=== PATIENT | female | born 1975 | race Asian ===

== ENCOUNTER 2017-03-27 16:17 | Inpatient (IN) | payer MEDICAID ==
[~2017-03-27] VITALS: Ht 165.1 cm; Wt 88.0 kg
[~2017-03-27 16:17] MED LIST: ALBU17AE3 IH; FRS325T PO; Ibuprofen PO; PREN-115 PO
[2017-03-27 16:30] VITALS: BP 121/84
[2017-03-27 18:28] LABS: BASOPHILS % (AUTO) 0 % (0-10); EOSINOPHILS # (AUTO) 0.2 10^3/uL (0.0-0.3); EOSINOPHILS % (AUTO) 2 % (0-10); LYMPHOCYTES # (AUTO) 1.9 X 10^3 (1.0-4.0); LYMPHOCYTES % (AUTO) 21 % (12-44); MEAN CORPUSCULAR HEMOGLOBIN 22 PG (25-34); MEAN CORPUSCULAR HGB CONC 31 G/DL (32-36); MEAN CORPUSCULAR VOLUME 71 FL (80-99); MEAN PLATELET VOLUME 9.3 FL (7.4-10.4); MONOCYTES % (AUTO) 11 % (0-12); NEUTROPHILS # (AUTO) 5.9 X 10^3 (1.8-7.8); NEUTROPHILS % (AUTO) 66 % (42-75); PLATELET COUNT 328 10^3/uL (130-400); RED BLOOD COUNT 3.92 10^6/uL (4.35-5.85); RED CELL DISTRIBUTION WIDTH 19.7 % (10.0-14.5); WHITE BLOOD COUNT 9.1 10^3/uL (4.3-11.0)
[2017-03-27 18:45] VITALS: BP 118/70
[2017-03-27 19:20] VITALS: BP 105/67
[2017-03-27] MEDS: D5 LR IV SOLUTION 1,000 ML IV SCH (19:22)
[2017-03-28] VITALS (39 sets, daily range): BP systolic 98–123; BP diastolic 52–84
[2017-03-28] MEDS: D5 LR IV SOLUTION 1,000 ML IV SCH (03:28)
[2017-03-28] MEDS ORDERED: SUFENTA 0.6MCG/ML BUPIVA 0.125 100 ML ONE (04:18)
[2017-03-28] MEDS ORDERED: D5 LR IV SOLUTION 1,000 ML IV SCH (04:35)
[2017-03-28] MEDS ORDERED: OXYTOCIN/NORMAL SALINE 500 ML IV SCH ×2 (04:35→04:37)
--- NOTE | 2017-03-28 04:43 | History & Physical ---
History and Physical Date Seen by Provider: Mar 28, 2017 Time Seen by Provider: 04:40 this patient is a 40-year-old A1 female with a history of very rapid labors. She presented with complaint of contractions and increasing pressure. Was found to be kacy regularly. Her cervix was changing slowly. She was admitted and has been managed expectantly. Her GBS was negative. She denies rupture membranes or bleeding. Allergies are to adhesive tape and aspirin Laboratory Tests 03/27/17 18:10 Medications are vitamins and albuterol multidose inhaler Past medical surgical obstetric family and social histories are per the antepartum record HEENT exam is normal Neck is supple no lymphadenopathy no thyromegaly Abdomen is gravid soft nontender nondistended Extremities show clubbing or cyanosis. There is no Homans sign. Pelvic exam per the nurse shows a cervix now dilated to 3-4 cm. She was vertex at the -1-2 station and intact membranes. Vital Signs Date Time Temp Pulse Resp B/P (MAP) Pulse Ox O2 Delivery O2 Flow Rate FiO2 03/28/17 00:05 98.0 83 18 111/68 Room Air 03/27/17 19:20 97.6 80 18 105/67 Room Air 03/27/17 18:45 98.0 79 20 118/70 Room Air 03/27/17 16:30 88 20 121/84 Room Air I & O 03/28/17 07:00 Intake Total 1300 ml Balance 1300 ml Assessment and plan term now at 39 weeks. In early labor with a history of very rapid labors. Her history is also significant for AMA. management has been expectant. Patient is requesting pain medication will be allowed with epidural. We anticipate vaginal delivery sometime today term at 38-6/7 weeks' gestation at the time of admission in early labor Allergies and Home Medications Allergies Uncoded Allergies: Adhesive Tape (Adverse Reaction, 09/07/12) Skin gets irritated and red. Home Medications Vit #108/Iron/Fa 1 Each Tablet, 1 EACH PO DAILY, (Reported) [Ibuprofen] 600 MG TAB, 600 MG PO Q6H PRN for cramping, #90 Ref 0 Prescribed by: MEGHANN VAZQUEZ on 07/11/14 0928 Clinical Quality Measures DVT/VTE Risk/Contraindication: Risk Factor Score Per Nursin RFS Level Per Nursing on Admit: 3=High AGUILA,SORAYA G MD Mar 28, 2017 4:43 am
[2017-03-28] MEDS ORDERED: BENZOCAINE/MENTHOL (DERMOPLAST) 56 ML CAN TP PRN (04:45)
[2017-03-28] MEDS ORDERED: MEASLES,MUMPS,RUBELLA 1 EA INJ SC ONE (04:45)
[2017-03-28] MEDS ORDERED: oxyCODONE/APAP 10/325MG (PERCOCET 10) TABLET PO PRN (04:45)
[2017-03-28] MEDS ORDERED: TETANUS,DIPTH,PERTUSS P/F (BOOSTRIX) 0.5 ML VIAL IM ONE (04:45)
[2017-03-28] MEDS ORDERED: fentaNYL INJECTION 100 MCG/2 ML AMP ONE (05:07)
[2017-03-28] MEDS ORDERED: BUPIVACAINE 0.25% 30 ML (SENSORCAINE) VIAL ONE (05:08)
[2017-03-28] MEDS ORDERED: LIDOCAINE PF 2% 10 ML (XYLOCAINE) AMP ONE (05:08)
[2017-03-28] MEDS ORDERED: LACTATED RINGERS 1,000 ML IV SCH (05:16)
[2017-03-28] MEDS ORDERED: EPIDURAL (SUFENTA 0.6MCG/ML BUPIVA 0.125%) 100 ML BAG EPI PRN (05:30)
[2017-03-28] MEDS ORDERED: diphenhydrAMINE 50 MG/ML INJ (BENADRYL) IV PRN (05:30)
[2017-03-28] MEDS ORDERED: NALOXONE 0.4 MG/ML 1 ML (NARCAN) VIAL IV PRN (05:30)
[2017-03-28] MEDS ORDERED: ONDANSETRON 4 MG/2 ML (SDV) Z0FRAN IV PRN (05:30)
[2017-03-28] MEDS ORDERED: LIDOCAINE/EPI 1%-1:200,000 (XYLOCAINE) 30 ML VIAL ONE (08:49)
[2017-03-28] MEDS: KETOROLAC 30 MG/ML VIAL IV SCH ×3 (10:31→21:57)
[2017-03-28] MEDS: DOCUSATE SODIUM 100 MG (COLACE) CAP PO SCH ×2 (11:49→21:57)
--- NOTE | 2017-03-28 12:32 | OPERATIVE REPORT ---
DATE OF SERVICE: 03/28/2017 DELIVERY NOTE The patient delivered by term spontaneous vaginal delivery at 39 weeks gestation over an intact perineum under epidural analgesia with 1 push. The infant was bulb suctioned on delivery of the head and again on completion of delivery. The infant is male. time was 0905, Apgars were 8 and 9, weight was 6 pounds 12 ounces. Cord arterial blood pH is pending secondary to the precipitous nature of her progress and some decels noted on the strip. The rectum, perineum, vagina and cervix were examined and found intact. The placenta delivered spontaneously Santana. It was normal with a 3-vessel cord. Sponge and needle counts were correct on completion of the delivery. Estimated blood loss was around 100 mL. The patient tolerated the delivery well and remained in the LDR for recovery. The baby remained with the mom. Job ID: [id number] DocumentID: [id number] Dictated Date: 03/28/2017 09:16:13 Acid Loader Date: 03/28/2017 12:31:40 Dictated By: SORAYA SHEEHAN MD
[2017-03-29] MEDS ORDERED: KETOROLAC 30 MG/ML VIAL ONE (03:13)
[2017-03-29 03:20] VITALS: BP 100/67
[2017-03-29] MEDS: KETOROLAC 30 MG/ML VIAL IV SCH (03:20)
[2017-03-29] MEDS: IBUPROFEN 800 MG (MOTRIN) TAB PO SCH ×4 (04:59→21:14)
--- NOTE | 2017-03-29 07:19 | Progress Note-Standard ---
Standard Progress Note Progress Notes/Assess & Plan Date Seen by Provider: Mar 29, 2017 Time Seen by Provider: 07:18 Progress/Assessment & Plan this patient is without complaint. She is ambulating, voiding, tolerating by mouth, denies chest pain, denies shortness of breath, denies headache, denies nausea vomiting, patient has good pain control. Vital Signs Date Time Temp Pulse Resp B/P (MAP) Pulse Ox O2 Delivery O2 Flow Rate FiO2 03/29/17 03:20 96.8 70 18 100/67 99 Room Air 03/28/17 23:45 96.3 85 18 98/58 100 Room Air 03/28/17 19:50 96.9 89 18 100/54 98 Room Air 03/28/17 14:04 98.0 71 18 98/59 Room Air 03/28/17 10:15 78 18 116/53 Room Air 03/28/17 10:00 79 18 104/58 Room Air 03/28/17 09:45 98.4 75 18 104/55 Room Air 03/28/17 09:30 98.3 86 18 110/55 Room Air 03/28/17 09:15 97.4 96 18 106/58 Room Air 03/28/17 09:00 88 18 115/63 Room Air 03/28/17 08:45 86 18 118/84 Room Air 03/28/17 08:30 93 18 106/52 100 Room Air 03/28/17 08:15 88 18 108/62 100 Room Air 03/28/17 08:00 86 18 114/57 100 Room Air 03/28/17 07:45 89 18 108/59 100 Room Air 03/28/17 07:30 98.7 92 18 109/65 100 Room Air I & O 03/29/17 07:00 Intake Total 500 ml Balance 500 ml vital signs are stable. Patient is afebrile. Fundus is firm below the umbilicus nontender. Extremities show no clubbing or cyanosis. There is no Homans sign. There is some pretibial pitting edema that is normal. Assessment and plan day number 1 status post term spontaneous vaginal delivery doing well. Plan is for routine convalescence care today and discharge home tomorrow Final Diagnosis term spontaneous vaginal delivery SORAYA SHEEHAN MD Mar 29, 2017 7:19 am
[2017-03-29] MEDS ORDERED: DOCU100C37 PO (07:20)
[2017-03-29] MEDS ORDERED: OXYC-465 PO (07:20)
[2017-03-29] MEDS ORDERED: IBUP-1780 PO (07:20)
--- NOTE | 2017-03-29 07:22 | Discharge Instructions ---
Discharge Instructions Discharge Medications New, Converted or Re-Newed RX: RX on Chart Patient Instructions Patient Instructions: as directed Return to The Hospital For: as directed Activity & Diet Discharge Diet: No Restrictions Activity as Tolerated: No Orders-Post D/C & Referrals Follow Up Appt: Call to make follow up appt. for patient in 4 weeks. Activity Per routine post vaginal delivery instructions. Please call in RX to patient pharmacy. Diet as tolerated Patient may shower or tub bathe as desired. SORAYA SHEEHAN MD Mar 29, 2017 7:22 am
[2017-03-29 08:42] VITALS: BP 121/78
[2017-03-29] MEDS: DOCUSATE SODIUM 100 MG (COLACE) CAP PO SCH ×2 (08:43→21:14)
[2017-03-29 15:05] VITALS: BP 99/63
[2017-03-29 21:00] VITALS: BP 114/63
[2017-03-30 02:20] VITALS: BP 98/61
[2017-03-30] MEDS: IBUPROFEN 800 MG (MOTRIN) TAB PO SCH ×2 (03:37→11:11)
--- NOTE | 2017-03-30 07:31 | Progress Note-Standard ---
Standard Progress Note Progress Notes/Assess & Plan Date Seen by Provider: Mar 30, 2017 Time Seen by Provider: 07:30 Progress/Assessment & Plan this patient is without complaint. She is ambulating, voiding, tolerating by mouth, denies chest pain, denies shortness of breath, denies headache, denies nausea vomiting, patient has good pain control. Vital Signs Date Time Temp Pulse Resp B/P (MAP) Pulse Ox O2 Delivery O2 Flow Rate FiO2 03/29/17 03:20 96.8 70 18 100/67 99 Room Air 03/28/17 23:45 96.3 85 18 98/58 100 Room Air 03/28/17 19:50 96.9 89 18 100/54 98 Room Air 03/28/17 14:04 98.0 71 18 98/59 Room Air 03/28/17 10:15 78 18 116/53 Room Air 03/28/17 10:00 79 18 104/58 Room Air 03/28/17 09:45 98.4 75 18 104/55 Room Air 03/28/17 09:30 98.3 86 18 110/55 Room Air 03/28/17 09:15 97.4 96 18 106/58 Room Air 03/28/17 09:00 88 18 115/63 Room Air 03/28/17 08:45 86 18 118/84 Room Air 03/28/17 08:30 93 18 106/52 100 Room Air 03/28/17 08:15 88 18 108/62 100 Room Air 03/28/17 08:00 86 18 114/57 100 Room Air 03/28/17 07:45 89 18 108/59 100 Room Air 03/28/17 07:30 98.7 92 18 109/65 100 Room Air I & O 03/29/17 07:00 Intake Total 500 ml Balance 500 ml vital signs are stable. Patient is afebrile. Fundus is firm below the umbilicus nontender. Extremities show no clubbing or cyanosis. There is no Homans sign. There is some pretibial pitting edema that is normal. Assessment and plan day number 1 status post term spontaneous vaginal delivery doing well. Plan is for routine convalescence care today and discharge home tomorrow March 30, 2017 Patient is without complaint. She is ambulating, voiding, tolerating by mouth, has good pain control, patient is requesting discharge home. Vital Signs Date Time Temp Pulse Resp B/P (MAP) Pulse Ox O2 Delivery O2 Flow Rate FiO2 03/30/17 02:20 98.0 78 18 98/61 97 Room Air 03/29/17 21:00 96.7 96 18 114/63 96 Room Air 03/29/17 15:05 97.2 18 99/63 98 Room Air 03/29/17 08:42 96.9 95 18 121/78 98 Room Air vital signs are stable. Patient is afebrile. Fundus is firm below the umbilicus nontender. Extremities show no clubbing cyanosis. There is no Homans sign. Assessment and plan day number 2 doing well. Plan is for discharge home. Final Diagnosis term spontaneous vaginal delivery SORAYA SHEEHAN MD Mar 30, 2017 7:31 am
[2017-03-30] MEDS ORDERED: TETANUS,DIPTH,PERTUSS P/F (BOOSTRIX) 0.5 ML VIAL IM ONE (07:32)
[2017-03-30 07:45] VITALS: BP 111/64
[2017-03-30] MEDS: DOCUSATE SODIUM 100 MG (COLACE) CAP PO SCH (07:45)
[2017-03-30 14:30] VITALS: BP 111/64
--- OUTSIDE RECORDS SUMMARY | 2017-03-30 17:33 | XMS REPORT ---
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 [employer] Name Role Phone MEENA BREWER CP Unavailable Allergies, Adverse Reactions, Alerts Substance Reaction Event Type Aspirin stomachache Drug Allergy adhesive Info Not Available Non Drug Allergy Problems Problem Type Condition Code Onset Dates Condition Status Problem Asthma, unspecified, unspecified status 493.90 Active Assessment Viral conjunctivitis 077.99 Active Problem Viral conjunctivitis 077.99 Active Medications Medication Code System Code Instructions Start Date End Date Status Dosage ProAir HFA [facility] [id number] 90 mcg/actuation February 27, 2014 inhale 2 puffs by Inhalation route every 4 hours as needed PRN shortness of breath/ cough Procedures Procedure Coding System Code Date Office Visit, Est Pt., Level 3 CPT-4 74364 Jun 07, 2015 Vital Signs Date/Time: Jun 07, 2015 Temperature 98.4 F Weight 184.5 lbs Height 65 in BMI 30.70 Index Blood Pressure Diastolic 78 mmHg Blood Pressure Systolic 118 mmHg Cardiac Monitoring Heart Rate 84 bpm Results No Known Results Summary Purpose [employer] Submission
--- OUTSIDE RECORDS SUMMARY | 2017-03-30 17:34 | XMS REPORT | Continuity of Care Document ---
Author Author [facility] Organization [facility] Address Unknown Phone Unavailable Allergies Active Description Code Type Severity Reaction Onset Reported/Identified Relationship to Patient Clinical Status Yes aspirin Drug Allergy 04/06/2012 Yes aspirin Drug Allergy N/A N/A 04/06/2012 Yes Adhesive Tape Adhesive Tape Unknown N/A 09/07/2012 Medications Problems Date Dx Coded Attending Type Code Diagnosis Diagnosed By 02/02/2012 V72.42 EXAMINATION OR TEST POSITIVE RESULT 02/02/2012 V72.42 EXAMINATION OR TEST POSITIVE RESULT 02/02/2012 VAZQUEZ MEGHANN GALLAGHER K V72.42 EXAMINATION OR TEST POSITIVE RESULT 02/02/2012 MULUGETA REYES MD V72.42 EXAMINATION OR TEST POSITIVE RESULT 02/02/2012 VAZQUEZ DO MEGHANN K V72.42 EXAMINATION OR TEST POSITIVE RESULT 02/02/2012 VAZQUEZ DO, MEGHANN K V72.42 EXAMINATION OR TEST POSITIVE RESULT 02/02/2012 VAZQUEZ DO MEGHANN K V72.42 EXAMINATION OR TEST POSITIVE RESULT 02/02/2012 VAZQUEZ DO MEGHANN K V72.42 EXAMINATION OR TEST POSITIVE RESULT 02/02/2012 VAZQUEZ DO, MEGHANN K V72.42 EXAMINATION OR TEST POSITIVE RESULT 02/02/2012 VAZQUEZ DO MEGHANN K V72.42 EXAMINATION OR TEST POSITIVE RESULT 02/02/2012 VAZQUEZ DO MEGHANN K V72.42 EXAMINATION OR TEST POSITIVE RESULT 02/02/2012 VAZQUEZ DO, MEGHANN K V72.42 EXAMINATION OR TEST POSITIVE RESULT 02/02/2012 DANN SINGH APRN V72.42 EXAMINATION OR TEST POSITIVE RESULT 02/02/2012 VAZQUEZ DO MEGHANN K V72.42 EXAMINATION OR TEST POSITIVE RESULT 02/02/2012 DANN SINGH APRN V72.42 EXAMINATION OR TEST POSITIVE RESULT 02/02/2012 VAZQUEZ DO MEGHANN K V72.42 EXAMINATION OR TEST POSITIVE RESULT 03/08/2012 V22.1 , NORMAL OTHER 03/08/2012 V22.1 , NORMAL OTHER 03/08/2012 VAZQUEZ DO, MEGHANN K V22.1 , NORMAL OTHER 03/08/2012 AMY STOCKTON, MULUGETA V22.1 , NORMAL OTHER 03/08/2012 VAZQUEZ DO, MEGHANN K V22.1 , NORMAL OTHER 03/08/2012 VAZQUEZ DO, MEGHANN K V22.1 , NORMAL OTHER 03/08/2012 VAZQUEZ DO, MEGHANN K V22.1 , NORMAL OTHER 03/08/2012 VAZQUEZ DO, MEGHANN K V22.1 , NORMAL OTHER 03/08/2012 VAZQUEZ DO, MEGHANN K V22.1 , NORMAL OTHER 03/08/2012 VAZQUEZ DO, MEGHANN K V22.1 , NORMAL OTHER 03/08/2012 VAZQUEZ DO, MEGHANN K V22.1 , NORMAL OTHER 03/08/2012 VAZQUEZ DO, MEGHANN K V22.1 , NORMAL OTHER 03/08/2012 DAR SINGH APRNE E V22.1 , NORMAL OTHER 03/08/2012 VAZQUEZ DO, MEGHANN K V22.1 , NORMAL OTHER 03/08/2012 DAR SINGH APRNE E V22.1 , NORMAL OTHER 03/08/2012 VAZQUEZ DO, MEGHANN K V22.1 , NORMAL OTHER 04/06/2012 V74.5 STD SCREEN 04/06/2012 V76.2 CERVICAL CANCER SCREENING (PAP SMEAR) 04/06/2012 V74.5 STD SCREEN 04/06/2012 V76.2 CERVICAL CANCER SCREENING (PAP SMEAR) 04/06/2012 VAZQUEZ DO, MEGHANN K V74.5 STD SCREEN 04/06/2012 VAZQUEZ DO, MEGHANN K V76.2 CERVICAL CANCER SCREENING (PAP SMEAR) 04/06/2012 MULUGETA REYES MD V74.5 STD SCREEN 04/06/2012 MULUGETA REYES MD V76.2 CERVICAL CANCER SCREENING (PAP SMEAR) 04/06/2012 VAZQUEZ DO, MEGHANN K V74.5 STD SCREEN 04/06/2012 VAZQUEZ DO, MEGHANN K V76.2 CERVICAL CANCER SCREENING (PAP SMEAR) 04/06/2012 VAZQUEZ DO, MEGHANN K V74.5 STD SCREEN 04/06/2012 VAZQUEZ DO, MEGHANN K V76.2 CERVICAL CANCER SCREENING (PAP SMEAR) 04/06/2012 VAZQUEZ DO, MEGHANN K V74.5 STD SCREEN 04/06/2012 VAZQUEZ DO, MEGHANN K V76.2 CERVICAL CANCER SCREENING (PAP SMEAR) 04/06/2012 VAZQUEZ DO, MEGHANN K V74.5 STD SCREEN 04/06/2012 VAZQUEZ DO, MEGHANN K V76.2 CERVICAL CANCER SCREENING (PAP SMEAR) 04/06/2012 VAZQUEZ DO, MEGHANN K V74.5 STD SCREEN 04/06/2012 VAZQUEZ DO, MEGHANN K V76.2 CERVICAL CANCER SCREENING (PAP SMEAR) 04/06/2012 VAZQUEZ DO, MEGHANN K V74.5 STD SCREEN 04/06/2012 VAZQUEZ DO, MEGHANN K V76.2 CERVICAL CANCER SCREENING (PAP SMEAR) 04/06/2012 VAZQUEZ DO, MEGHANN K V74.5 STD SCREEN 04/06/2012 VAZQUEZ DO, MEGHANN K V76.2 CERVICAL CANCER SCREENING (PAP SMEAR) 04/06/2012 VAZQUEZ DO, MEGHANN K V74.5 STD SCREEN 04/06/2012 VAZQUEZ DO MEGHANN K V76.2 CERVICAL CANCER SCREENING (PAP SMEAR) 04/06/2012 DANN SINGH APRN V74.5 STD SCREEN 04/06/2012 DANN SINGH APRN E V76.2 CERVICAL CANCER SCREENING (PAP SMEAR) 04/06/2012 TAYLOR GALLAGHER MEGHANN K V74.5 STD SCREEN 04/06/2012 TAYLOR GALLAGHER MEGHANN K V76.2 CERVICAL CANCER SCREENING (PAP SMEAR) 04/06/2012 DANN SINGH APRN E V74.5 STD SCREEN 04/06/2012 DANN SINGH APRN E V76.2 CERVICAL CANCER SCREENING (PAP SMEAR) 04/06/2012 TAYLOR GALLAGHER MEGHANN K V74.5 STD SCREEN 04/06/2012 VAZQUEZ DO MEGHANN K V76.2 CERVICAL CANCER SCREENING (PAP SMEAR) 07/04/2012 641.90 COMPL OF - BLEEDING 07/04/2012 V04.81 FLU SHOT 07/04/2012 641.90 COMPL OF - BLEEDING 07/04/2012 V04.81 FLU SHOT 07/04/2012 VAZQUEZ DIANE GALLAGHERA K 641.90 COMPL OF - BLEEDING 07/04/2012 VAZQUEZ DIANE GALLAGHERA K V04.81 FLU SHOT 07/04/2012 MULUGETA REYES MD 641.90 COMPL OF - BLEEDING 07/04/2012 MULUGETA REYES MD V04.81 FLU SHOT 07/04/2012 VAZQUEZ DO, MEGHANN K 641.90 COMPL OF - BLEEDING 07/04/2012 VAZQUEZ DO, MEGHANN K V04.81 FLU SHOT 07/04/2012 VAZQUEZ DO, MEGHANN K 641.90 COMPL OF - BLEEDING 07/04/2012 VAZQUEZ DO, MEGHANN K V04.81 FLU SHOT 07/04/2012 VAZQUEZ DO, MEGHANN K 641.90 COMPL OF - BLEEDING 07/04/2012 VAZQUEZ DO, MEGHANN K V04.81 FLU SHOT 07/04/2012 VAZQUEZ DO, MEGHANN K 641.90 COMPL OF - BLEEDING 07/04/2012 VAZQUEZ DO, MEGHANN K V04.81 FLU SHOT 07/04/2012 VAZQUEZ DO, MEGHANN K 641.90 COMPL OF - BLEEDING 07/04/2012 VAZQUEZ DO, MEGHANN K V04.81 FLU SHOT 07/04/2012 VAZQUEZ DO, MEGHANN K 641.90 COMPL OF - BLEEDING 07/04/2012 VAZQUEZ DO, MEGHANN K V04.81 FLU SHOT 07/04/2012 VAZQUEZ DO, MEGHANN K 641.90 COMPL OF - BLEEDING 07/04/2012 VAZQUEZ DO, MEGHANN K V04.81 FLU SHOT 07/04/2012 VAZQUEZ DO, MEGHANN K 641.90 COMPL OF - BLEEDING 07/04/2012 VAZQUEZ DO, MEGHANN K V04.81 FLU SHOT 07/04/2012 DANN SNIGH APRN 641.90 COMPL OF - BLEEDING 07/04/2012 DANN SINGH APRN V04.81 FLU SHOT 07/04/2012 VAZQUEZ DO, MEGHANN K 641.90 COMPL OF - BLEEDING 07/04/2012 VAZQUEZ DO, MEGHANN K V04.81 FLU SHOT 07/04/2012 DANN SINGH APRN 641.90 COMPL OF - BLEEDING 07/04/2012 DANN SINGH APRN V04.81 FLU SHOT 07/04/2012 VAZQUEZ DO MEGHANN K 641.90 COMPL OF - BLEEDING 07/04/2012 VAZQUEZ DO MEGHANN K V04.81 FLU SHOT 08/22/2012 Ot 644.03 THRT PAOLA LABOR-ANTEPART 09/07/2012 Ot 644.03 THRT PAOLA LABOR-ANTEPART 09/09/2012 Ot 661.31 PRECIPITATE LABOR-DELIV 09/09/2012 Ot 664.01 DEL W 1 DEG LACERAT-DEL 09/09/2012 Ot V06.1 [id number], COMBINED [ 09/09/2012 Ot V27.0 DELIVER-SINGLE LIVEBORN 01/22/2013 682.9 CELLULITIS AND ABSCESS OF UNSPECIFIED SITES 01/22/2013 682.9 CELLULITIS AND ABSCESS OF UNSPECIFIED SITES 01/22/2013 MEGHANN VAZQUEZ DO 682.9 CELLULITIS AND ABSCESS OF UNSPECIFIED SITES 01/22/2013 MEGHANN VAZQUEZ DO K 682.9 CELLULITIS AND ABSCESS OF UNSPECIFIED SITES 01/22/2013 MEGHANN VAZQUEZ DO K 682.9 CELLULITIS AND ABSCESS OF UNSPECIFIED SITES 01/22/2013 MEGHANN VAZQUEZ DO 682.9 CELLULITIS AND ABSCESS OF UNSPECIFIED SITES 01/22/2013 MEGHANN VAZQUEZ DO 682.9 CELLULITIS AND ABSCESS OF UNSPECIFIED SITES 01/22/2013 DIANE VAZQUEZ DOA K 682.9 CELLULITIS AND ABSCESS OF UNSPECIFIED SITES 01/22/2013 DIANE VAZQUEZ DOA K 682.9 CELLULITIS AND ABSCESS OF UNSPECIFIED SITES 01/22/2013 DIANE VAZQUEZ DOA K 682.9 CELLULITIS AND ABSCESS OF UNSPECIFIED SITES 01/22/2013 DIANE VAZQUEZ DOA K 682.9 CELLULITIS AND ABSCESS OF UNSPECIFIED SITES 01/22/2013 FRANCISCO BRAND MANAGERDARE E 682.9 CELLULITIS AND ABSCESS OF UNSPECIFIED SITES 01/22/2013 MEGHANN VAZQUEZ DO K 682.9 CELLULITIS AND ABSCESS OF UNSPECIFIED SITES 01/22/2013 FRANCISCO BRAND MANAGER, DANN E 682.9 CELLULITIS AND ABSCESS OF UNSPECIFIED SITES 01/22/2013 MEGHANN VAZQUEZ DO 682.9 CELLULITIS AND ABSCESS OF UNSPECIFIED SITES 01/15/2014 MEGHANN VAZQUEZ DO V23.82 SUPERVISION OF HIGH-RISK WITH ELDERLY MULTIGRAVIDA 01/15/2014 MEGHANN VAZQUEZ DO V23.82 SUPERVISION OF HIGH-RISK WITH ELDERLY MULTIGRAVIDA 01/15/2014 MEGHANN VAZQUEZ DO V23.82 SUPERVISION OF HIGH-RISK WITH ELDERLY MULTIGRAVIDA 01/15/2014 VAZQUEZ DO MEGHANN K V23.82 SUPERVISION OF HIGH-RISK WITH ELDERLY MULTIGRAVIDA 01/15/2014 VAZQUEZ DO MEGHANN K V23.82 SUPERVISION OF HIGH-RISK WITH ELDERLY MULTIGRAVIDA 01/15/2014 VAZQUEZ DO MEGHANN K V23.82 SUPERVISION OF HIGH-RISK WITH ELDERLY MULTIGRAVIDA 01/15/2014 VAZQUEZ DO MEGHANN K V23.82 SUPERVISION OF HIGH-RISK WITH ELDERLY MULTIGRAVIDA 01/15/2014 VAZQUEZ DO MEGHANN K V23.82 SUPERVISION OF HIGH-RISK WITH ELDERLY MULTIGRAVIDA 01/15/2014 VAZQUEZ DO MEGHANN K V23.82 SUPERVISION OF HIGH-RISK WITH ELDERLY MULTIGRAVIDA 01/15/2014 HELLDANN PRASAD APRN V23.82 SUPERVISION OF HIGH-RISK WITH ELDERLY MULTIGRAVIDA 01/15/2014 VAZQUEZ DO MEGHANN K V23.82 SUPERVISION OF HIGH-RISK WITH ELDERLY MULTIGRAVIDA 01/15/2014 HELLDANN PRASAD APRN V23.82 SUPERVISION OF HIGH-RISK WITH ELDERLY MULTIGRAVIDA 01/15/2014 VAZQUEZ DO MEGHANN K V23.82 SUPERVISION OF HIGH-RISK WITH ELDERLY MULTIGRAVIDA 02/27/2014 TAYLOR GALLAGHER MEGHANN K 493.90 ASTHMA UNSPECIFIED 02/27/2014 VAZQUEZ DO MEGHANN K 493.90 ASTHMA UNSPECIFIED 02/27/2014 VAZQUEZ DO, MEGHANN K 493.90 ASTHMA UNSPECIFIED 02/27/2014 VAZQUEZ DO MEGHANN K 493.90 ASTHMA UNSPECIFIED 02/27/2014 VAZQUEZ DO MEGHANN K 493.90 ASTHMA UNSPECIFIED 02/27/2014 VAZQUEZ DO, MEGHANN K 493.90 ASTHMA UNSPECIFIED 02/27/2014 VAZQUEZ DO, MEGHANN K 493.90 ASTHMA UNSPECIFIED 02/27/2014 HELLWIG DANN ZEPEDA 493.90 ASTHMA UNSPECIFIED 02/27/2014 VAZQUEZ DO MEGHANN K 493.90 ASTHMA UNSPECIFIED 02/27/2014 HELLWIG DANN ZEPEDA 493.90 ASTHMA UNSPECIFIED 02/27/2014 VAZQUEZ DO MEGHANN K 493.90 ASTHMA UNSPECIFIED 06/12/2014 TAYLOR GALLAGHER MEGHANN K V06.1 TDAP DX 06/12/2014 DANN SINGH APRN E V06.1 TDAP DX 06/12/2014 VAZQUEZ MEGHANN GALLAGHER K V06.1 TDAP DX 06/12/2014 FABRICIOLDAR PRASAD APRNE E V06.1 TDAP DX 06/12/2014 VAZQUEZ DIANE GALLAGHERA K V06.1 TDAP DX 06/14/2014 DIANE VAZQEUZ DOA Miguel Ot 648.93 OTH CURR COND-ANTEPARTUM 06/14/2014 DIANE VAZQUEZ DOA Miguel Ot 789.00 ABDOMINAL PAIN, UNSPECIFIED SITE 06/19/2014 DIANE VAZQUEZ DOA K 789.00 ABDOMINAL PAIN UNSPECIFIED SITE 06/19/2014 HELCOBY BRAND MANAGERDAR DiazE E 789.00 ABDOMINAL PAIN UNSPECIFIED SITE 06/19/2014 DIANE VAZQUEZ DOA K 789.00 ABDOMINAL PAIN UNSPECIFIED SITE 06/19/2014 DAR SINGH APRNE E 789.00 ABDOMINAL PAIN UNSPECIFIED SITE 06/19/2014 DIANE VAZQUEZ DOA K 789.00 ABDOMINAL PAIN UNSPECIFIED SITE 07/11/2014 DIANE VAZQUEZ DOA Miguel Ot 285.9 ANEMIA NOS 07/11/2014 DIANE VAZQUEZ DOA Miguel Ot 648.21 ANEMIA-DELIVERED 07/11/2014 DIANE VAZQUEZ DOA Miguel Ot V27.0 DELIVER-SINGLE LIVEBORN 08/19/2014 MEGHANN VAZQUEZ DO V25.9 CONTRACEPTION MANAGEMENT 03/27/2017 Ot V28.89 OTHER SPECIFIED SCREENING 03/27/2017 Ot V28.89 OTHER SPECIFIED SCREENING 03/27/2017 NICOLE TEJEDA APRN Ot V28.81 ENCOUNTER FOR ANATOMIC SURVEY 03/27/2017 MEGHANN VAZQUEZ DO Ot 493.90 ASTHMA, UNSPECIFIED 03/27/2017 DIANE VAZQUEZ DOA Miguel Ot 646.83 PREG COMPL NEC-ANTEPART 03/27/2017 MEGHANN VAZQUEZ DO Ot 648.93 OTH CURR COND-ANTEPARTUM 03/27/2017 MEGHANN VAZQUEZ DO Ot 682.9 CELLULITIS NOS 03/27/2017 DIANE VAZQUEZ DOA Miguel Ot V23.82 SUPRV HIGH-RISK PREG-ELDERLY MULTIGRAVID 03/27/2017 MEGHANN VAZQUEZ DO Ot V28.81 ENCOUNTER FOR ANATOMIC SURVEY 03/27/2017 MEGHANN VAZQUEZ DO Ot V72.42 EXAMINATION OR TEST, POSITIVE 03/27/2017 MEGHANN VAZQUEZ DO Ot V74.5 SCREEN FOR VENERAL DIS 03/27/2017 MEGHANN VAZQUEZ DO Ot V76.2 SCREEN MAL NEOP-CERVIX Procedures Code [place] [address] UA OB DIP 2011 81784 UA OB DIP 2011 15502 CULTURE GROUP B STREP VAG 08/29/2012 75.69 REPAIR OB LACERATION NEC 09/07/2012 06237 ROUTINE VENIPUNCTURE 01/15/2014 80311 UA OB DIP 2013 32783 TEST, URINE (IN-HOUSE) 01/15/2014 72902 US OB - EARLY <14 WEEKS 01/15/2014 34672 SYPHILLIS-STATE LAB 01/15/2014 69274 ANTIBODY SCREEN (order) 01/15/2014 12798 HEP B SURFACE ANTIGEN (STATE) 01/15/2014 03297 CBC 01/15/2014 14915 TSH 01/15/2014 82221 HIV ANTIBODIES (RML) 01/16/2014 [id number] ANTIBODY SCREEN (RESULT ONLY) 01/16/2014 38242 BLOOD TYPE/Rh FACTOR 01/16/2014 32982 RUBELLA ANTIBODY, IGG 01/16/2014 26253 CULTURE URINE 06/2014 15845 UA OB DIP 2013 45385 GC/CHLAM PROBE (STATE) 02/12/2014 00467 CULTURE UROGENITAL 02/14/2014 40050 UA OB DIP 2013 84658 US OB - COMPLETE >14 WEEKS 02/27/2014 05449 UA OB DIP 2013 39348 GLUCOSE FINGER STICK 05/09/2014 14527 UA OB DIP 2013 93090 GLUCOSE FINGER STICK 05/29/2014 75844 UA OB DIP 2013 80014 UA OB DIP 2013 92236 CULTURE GROUP B STREP VAG 07/03/2014 Obstetric Robin, Dennis 07/03/2014 73.59 MANUAL ASSIST DELIV NEC 07/09/2014 27632 TEST, URINE (IN-HOUSE) 08/19/2014 40077 THERAPUTIC INJ SQ/IM 08/19/2014 J1050 DEPO PROVERA 07/2014 Results Test Result Range Complete blood count (CBC) with automated white blood cell (WBC) differential - 03/27/17 18:10 Blood leukocytes automated count (number/volume) 9.1 10*3/ uL 4.3-11.0 Blood erythrocytes automated count (number/volume) 3.92 10*6 /uL 4.35-5.85 Venous blood hemoglobin measurement (mass/volume) 8.5 g/dL 11.5-16.0 Blood hematocrit (volume fraction) 28 % 35-52 Automated erythrocyte mean corpuscular volume 71 [foz_us] 80-99 Automated erythrocyte mean corpuscular hemoglobin (mass per erythrocyte) 22 pg 25-34 Automated erythrocyte mean corpuscular hemoglobin concentration measurement ( mass/volume) 31 g/dL 32-36 Automated erythrocyte distribution width ratio 19.7 % 10.0-14.5 Automated blood platelet count (count/volume) 328 10*3/uL 130-400 Automated blood platelet mean volume measurement 9.3 [foz_us ] 7.4-10.4 Automated blood neutrophils/100 leukocytes 66 % 42-75 Automated blood lymphocytes/100 leukocytes 21 % 12-44 Blood monocytes/100 leukocytes 11 % 0-12 Automated blood eosinophils/100 leukocytes 2 % 0-10 Automated blood basophils/100 leukocytes 0 % 0-10 Blood neutrophils automated count (number/volume) 5.9 10*3 1.8-7.8 Blood lymphocytes automated count (number/volume) 1.9 10*3 1.0-4.0 Blood monocytes automated count (number/volume) 1.0 10*3 0.0-1.0 Automated eosinophil count 0.2 10*3/uL 0.0-0.3 Automated blood basophil count (count/volume) 0.0 10*3/uL 0.0-0.1 Blood type T Indirect antibody screen panel - 03/27/17 18:10 ABO+Rh group OP NRG Transfusion band number [id number] NRG Blood group antibody screen NEGATIVE NRG Encounters ACCT No. Visit Date/Time Discharge Status Pt. Type Provider Facility Loc./Unit Complaint [id number] 07/08/2014 22:43:00 2013 11:30:00 DIS Inpatient MEGHANN VAZQUEZ DO [facility] LDRP CONTRACTIONS [id number] 06/14/2014 14:55:00 2013 19:15:00 DIS Outpatient MEGHANN VAZQUEZ DO [facility] WSo NON-TRAUMA ABD PAIN [id number] 03/06/2014 15:04:00 2013 23:59:59 CLS Outpatient MEGHANN VAZQUEZ DO [facility] RAD SURVEY [id number] 01/23/2014 14:33:00 2013 23:59:59 CLS Outpatient NICOLE TEJEDA APRN [facility] RAD DATING [id number] 06/04/2013 10:44:00 2012 23:59:59 CLS Outpatient [id number] 03/27/2017 17:45:00 ACT Inpatient RUBEN SHEEHAN MD [facility]DR[facility] LABOR [id number] 09/07/2012 17:44:00 Document Registration [id number] 09/07/2012 09:11:00 Document Registration [id number] 08/22/2012 07:02:00 Document Registration [id number] 05/09/2012 10:13:00 Document Registration [id number] 03/10/2012 10:32:00 Document Registration
== END 2017-03-30 14:30 | disposition home or self-care (01) | DRG 775 ==
LOC: WSo 16:17 → LDRP 16:18 → WSo 17:45 → LDRP 17:45
PROVIDERS: ADMIT Obstetrics & Gynecology; ATTEND Obstetrics & Gynecology
PROC: 10E0XZZ Delivery of Products of Conception, External Approach (ICD-10-PCS; principal; 2017-03-28)
DX: O26.893 Other specified pregnancy related conditions, third trimester (principal); O09.523 Supervision of elderly multigravida, third trimester; O62.3 Precipitate labor; O76 Abnormality in fetal heart rate and rhythm complicating labor and delivery; Z3A.39 39 weeks gestation of pregnancy; Z37.0 Single live birth; Z23 Encounter for immunization
CPT/HCPCS: 36415; 85025; 86850; 86900; 86901; 90715; 99212

== ENCOUNTER 2020-12-08 07:05 | Inpatient (IN) | payer MEDICAID ==
[2020-12-08] VITALS (38 sets, daily range): BP systolic 87–143; BP diastolic 51–98
[~2020-12-08] VITALS: Ht 162.6 cm; Wt 84.2 kg
[~2020-12-08 07:05] MED LIST changes: +DOCU100C37 PO; +IBUP-1780 PO; +OXYC-556 PO
--- NOTE | 2020-12-08 07:23 | History & Physical ---
History and Physical Date Seen by Provider: Dec 08, 2020 Time Seen by Provider: 07:20 This patient is a 45-year-old 6 para 5 female who presents for induction of labor. Her history is significant for an abnormal genetic screening test showing increased risk for SMA. Patient is also noted to have polyhydramnios with an JABIER of 240 on November 18, 2020. Patient denies rupture membranes or bleeding. Her GBS culture was negative that was performed after 35 weeks gestation. Allergies are to adhesive tape Medications are vitamins Medical social and surgical history is all per her antepartum record HEENT exam is normal Neck is supple with no lymphadenopathy no thyromegaly Abdomen is gravid Extremities show no clubbing or cyanosis. There is no Homans' sign. Pelvic exam is pending Lab work is pending Assessment and plan 38-3/7 weeks gestation and an elderly multigravida with abnormal genetic screening and with polyhydramnios. Patient is admitted for labor induction. We anticipate a vaginal delivery Polyhydmnios/elderly multigravid/abnormal genetic screen Allergies and Home Medications Allergies Uncoded Allergies: Adhesive Tape (Adverse Reaction, 09/07/12) Skin gets irritated and red. Home Medications Docusate Sodium 100 Mg Capsule, 100 MG PO BID Prescribed by: SORAYA HERRERA on 03/29/17719 Ibuprofen 800 Mg Tablet, 800 MG PO Q6H Prescribed by: SORAYA HERRERA on 03/29/17719 Oxycodone HCl/Acetaminophen 1 Each Tablet, 1-2 TAB PO Q6H PRN for PAIN-MILD TO MODERATE Prescribed by: SORAYA HERRERA on 03/29/17719 Vit #108/Iron/Fa 1 Each Tablet, 1 EACH PO DAILY, (Reported) Patient Home Medication List Home Medication List Reviewed: Yes SORAYA SHEEHAN MD Dec 08, 2020 07:23
[2020-12-08] MEDS ORDERED: OXYTOCIN PRE-MIX DRIP 500 ML IV SCH ×2 (07:30→15:00)
[2020-12-08] MEDS ORDERED: D5 LR IV SOLUTION 1,000 ML IV SCH (07:30)
[2020-12-08 08:07] LABS: BASOPHILS % (AUTO) 0 % (0-10); EOSINOPHILS # (AUTO) 0.1 10^3/uL (0.0-0.3); EOSINOPHILS % (AUTO) 1 % (0-10); HEMATOCRIT 27 % (35-52); LYMPHOCYTES # (AUTO) 1.9 10^3/uL (1.0-4.0); LYMPHOCYTES % (AUTO) 28 % (12-44); MEAN CORPUSCULAR HEMOGLOBIN 21 pg (25-34); MEAN CORPUSCULAR HGB CONC 30 g/dL (32-36); MEAN CORPUSCULAR VOLUME 70 fL (80-99); MEAN PLATELET VOLUME 9.2 fL (9.0-12.2); MONOCYTES # (AUTO) 0.8 10^3/uL (0.0-1.0); MONOCYTES % (AUTO) 11 % (0-12); NEUTROPHILS # (AUTO) 3.9 10^3/uL (1.8-7.8); NEUTROPHILS % (AUTO) 58 % (42-75); PLATELET COUNT 261 10^3/uL (130-400); WHITE BLOOD COUNT 6.6 10^3/uL (4.3-11.0)
[2020-12-08] MEDS ORDERED: fentaNYL 2 mcg/ml BUPIVA 0.125 100 ML ONE (09:01)
[2020-12-08] MEDS ORDERED: ONDANSETRON 4 MG/2 ML (SDV) Z0FRAN IV PRN (10:15)
[2020-12-08] MEDS ORDERED: diphenhydrAMINE 50 MG/ML INJ (BENADRYL) IV PRN (10:15)
[2020-12-08] MEDS ORDERED: METOCLOPRAMIDE INJ 10 MG/2 ML (REGLAN) IV PRN (10:15)
[2020-12-08] MEDS ORDERED: LACTATED RINGERS 1,000 ML IV SCH (10:15)
[2020-12-08] MEDS ORDERED: NALOXONE 0.4 MG/ML 1 ML (NARCAN) VIAL IV PRN ×2 (10:15)
[2020-12-08] MEDS ORDERED: EPIDURAL (fentaNYL 2 MCG/ML BUPIVA 0.125%)100 ML BAG EPI SCH (10:15)
[2020-12-08] MEDS ORDERED: LIDOCAINE/EPI 2% 1:200,00 (XYLOCAINE) 10 ML VIAL ONE (13:46)
[2020-12-08] MEDS ORDERED: MEASLES,MUMPS,RUBELLA 1 EA INJ SC ONE (15:00)
[2020-12-08] MEDS ORDERED: ONDANSETRON 4 MG/2 ML (SDV) Z0FRAN IVP PRN (15:00)
[2020-12-08] MEDS ORDERED: BENZOCAINE/MENTHOL (DERMOPLAST) 60 ML CAN TP PRN (15:00)
[2020-12-08] MEDS ORDERED: TETANUS,DIPTH,PERTUSS P/F (BOOSTRIX) 0.5 ML VIAL IM ONE (15:00)
[2020-12-08] MEDS ORDERED: oxyCODONE/APAP 5/325MG (PERCOCET 5) TABLET PO PRN (15:00)
[2020-12-08] MEDS: KETOROLAC 30 MG/ML VIAL IVP SCH ×2 (17:11→23:23)
[2020-12-08] MEDS ORDERED: DOCU100C37 PO (17:41)
[2020-12-08] MEDS ORDERED: IBUP-1780 PO (17:41)
[2020-12-08] MEDS ORDERED: OXYC1TAB87 PO (17:41)
--- NOTE | 2020-12-08 17:42 | Discharge Inst-Surgical ---
Discharge Inst-Surgical Depart Medication/Instructions New, Converted or Re-Newed RX: RX on Chart Consults/Follow Up Orders & Referrals Follow Up Appt: Call to make follow up appt. for patient in 4 weeks. Activity Per routine post vaginal delivery instructions. Please call in RX to patient pharmacy. Diet as tolerated Patient may shower or tub bathe as desired. SORAYA SHEEHAN MD Dec 08, 2020 17:42
--- NOTE | 2020-12-08 20:27 | OPERATIVE REPORT ---
DATE OF SERVICE: 12/08/2020 DELIVERY NOTE The patient delivered by term spontaneous vaginal delivery a viable male with Apgars of 7 and 9 at 1 and 5 minutes respectively, weight of 6 pounds 14 ounces, time of 1402 and a cord blood pH that is pending. The infant was delivered over an intact perineum under epidural analgesia. There was a tight nuchal cord that could not be released that was doubly clamped and cut and the infant promptly delivered. The infant was resuscitated on mom's abdomen. The labor and delivery by the pediatric nurse in attendance. The placenta delivered spontaneously Santana after obtaining the cord blood. The placenta was normal with a 3-vessel cord. The cervix, vagina, rectum, and perineum were examined and found intact, except for some very minimal superficial abrasions on the perineal body. Sponge and needle counts were correct on completion of the delivery and the post-delivery inspection. Blood loss was around 100 mL. The patient tolerated the delivery well and remained in the LDR for recovery. The baby remained with the mom. Job ID: [id number] DocumentID: [id number] Dictated Date: 12/08/2020 15:08:54 Dry Chain Operator Date: 12/08/2020 20:27:41 Dictated By: SORAYA SHEEHAN MD
[2020-12-08] MEDS: DOCUSATE SODIUM 100 MG (COLACE) CAP PO SCH (20:33)
[2020-12-09 00:20] VITALS: BP 108/53
[2020-12-09 04:30] VITALS: BP 107/60
[2020-12-09] MEDS: KETOROLAC 30 MG/ML VIAL IVP SCH (05:23)
--- NOTE | 2020-12-09 07:12 | Anesthesia-Regional Post-Op ---
Regional Patient Condition Mental Status: Alert, Oriented x3 Circulation: Same as Pre-Op Headache: Absent Sensation: Full Recovery Motor Block: Absent Post Op Complications Complications None Follow Up Care/Instructions Patient Instructions None needed. Anesthesia/Patient Condition Patient is doing well, no complaints, stable vital signs, no apparent adverse anesthesia problems. No complications reported per nursing. HOA SWENSON CRNA Dec 09, 2020 07:12
--- NOTE | 2020-12-09 07:22 | Progress Note ---
Standard Progress Note Progress Notes/Assess & Plan Date Seen by a Provider: Dec 09, 2020 Time Seen by a Provider: 07:21 Final Diagnosis This patient is without complaint. She is ambulating, voiding, tolerating oral intake well and has good pain control. Vital Signs 12/08/20 12/09/20 10:14 04:30 Temp 36.2 Pulse 68 Resp 16 B/P (MAP) 107/60 (76) Pulse Ox 99 O2 Delivery Room Air O2 Flow Rate 15.00 Vital signs are stable. Patient is afebrile. The abdomen is benign. The fundus is firm below the umbilicus and nontender. Extremities show no clubbing or cyanosis. No Homans' sign. Assessment and plan day #1 status post term spontaneous vaginal delivery at 38+ weeks gestation. Patient is doing well will have routine convalescent care SORAYA SHEEHAN MD Dec 09, 2020 07:22
[2020-12-09 08:15] VITALS: BP 120/62
[2020-12-09] MEDS: DOCUSATE SODIUM 100 MG (COLACE) CAP PO SCH (08:26)
[2020-12-09 12:15] VITALS: BP 118/66
[2020-12-09] MEDS ORDERED: IBUPROFEN 800 MG (MOTRIN) TAB PO SCH (15:00)
[2020-12-09 16:00] VITALS: BP 115/59
[2020-12-09 18:00] VITALS: BP 115/59
== END 2020-12-09 18:00 | disposition home or self-care (01) | DRG 807 ==
LOC: LDRP 07:05
PROVIDERS: ADMIT Obstetrics & Gynecology; ATTEND Obstetrics & Gynecology
PROC: 10E0XZZ Delivery of Products of Conception, External Approach (ICD-10-PCS; principal; 2020-12-08)
PROC: 3E033VJ Introduction of Other Hormone into Peripheral Vein, Percutaneous Approach (ICD-10-PCS; 2020-12-08)
DX: O40.3XX0 Polyhydramnios, third trimester, not applicable or unspecified (principal); Z37.0 Single live birth; O69.1XX0 Labor and delivery complicated by cord around neck, with compression, not applicable or unspecified; Z3A.38 38 weeks gestation of pregnancy; Z20.822 Contact with and (suspected) exposure to COVID-19
CPT/HCPCS: 36415; 85025; 87635

== ENCOUNTER 2021-05-20 15:13 | Emergency (ER) | payer MEDICAID ==
[~2021-05-20] VITALS: Ht 162 cm; Wt 80.0 kg
[~2021-05-20 15:13] MED LIST changes: +OXYC1TAB87 PO
[2021-05-20] MEDS ORDERED: LIDOCAINE 1% INJ 20 ML 20 ML VIAL INJ ONE (15:30)
[2021-05-20 15:32] VITALS: BP 120/68
--- NOTE | 2021-05-20 15:38 | ED Lower Extremity ---
General Chief Complaint: Laceration Stated Complaint: LT LITTLE TOE LAC Nursing Triage Note: PT STEPPED ON A ROCK AND HAS A LACERATION ON THE POSTERIOR SIDE OF HER 5TH TOE. Source: patient Exam Limitations: no limitations History of Present Illness Date Seen by Provider: May 20, 2021 Time Seen by Provider: 15:37 Initial Comments Patient is a 45-year-old female with 1 cm laceration to her left small toe pad crease. Bleeding is controlled. Laceration occurred just prior to arrival. Tetanus is up-to-date. Patient was wearing shoes at the time. No water exposure. No other symptoms or complaints Onset: just prior to arrival Severity: mild Pain/Injury Location: left 1st toe (Laceration) Method of Injury: incised (Small rock) Modifying Factors: Improves With Other Allergies and Home Medications Allergies Uncoded Allergies: Adhesive Tape (Adverse Reaction, 09/07/12) Skin gets irritated and red. Home Medications Docusate Sodium 100 Mg Capsule, 100 MG PO BID Prescribed by: SORAYA HERRERA on 12/08/201740 Ibuprofen 800 Mg Tablet, 800 MG PO Q6H Prescribed by: SORAYA HERRERA on 12/08/201740 Oxycodone HCl/Acetaminophen 1 Each Tablet, 1 TAB PO Q4H PRN for PAIN-MODERATE (5-7) Prescribed by: SORAYA HERRERA on 12/08/201740 Vit #108/Iron/Fa 1 Each Tablet, 1 EACH PO DAILY, (Reported) Patient Home Medication List Home Medication List Reviewed: Yes Review of Systems Constitutional: no symptoms reported Skin: see HPI Past Rkqiose-Suokox-Yojzyb Hx Patient Social History Tobacco Use?: No Use of E-Cig and/or Vaping dev: No Substance use?: No Alcohol Use?: No Pt feels they are or have been: No Immunizations Up To Date Tetanus Booster (TDap): Unknown PED Vaccines UTD: Yes Seasonal Allergies Seasonal Allergies: No Past Medical History Surgeries: Yes Respiratory: Yes Asthma Currently Using CPAP: No Currently Using BIPAP: No Cardiac: No Neurological: No Reproductive Disorders: No Genitourinary: No Gastrointestinal: No Musculoskeletal: No Endocrine: No HEENT: No Cancer: No Psychosocial: No Anxiety Integumentary: No Blood Disorders: No Adverse Reaction/Blood Tranf: No Family Medical History Asthma 19 MOTHER G8 SISTER No Family History of: AIDS Abdominal aortic aneurysm Gowrie's disease Alcoholism Alzheimer's disease Aphasia Arthritis Cancer of mouth Cardiovascular disease Cataracts Colon cancer Completed stroke Congenital disease Congenital heart disease Coronary thrombosis Cystic fibrosis Deafness or hearing loss Dementia Diabetes mellitus Drug abuse Dysphasia Fibrocystic disease of breast Gastroenteritis Glaucoma Headache disorder Hypercholesterolemia Hypertension Infertility Kidney disease Myocardial infarction Neoplasm Not obtainable due to adoption Osteoporosis Parkinson's disease Prostate cancer Psychosocial problem Respiratory disorder Seizure disorder Severe allergy Thyroid disease Tuberculosis Visual disorder Physical Exam Vital Signs Vital Signs - First Documented 05/20/21 15:32 Temp 36.5 Pulse 73 Resp 16 B/P (MAP) 120/68 (85) Pulse Ox 98 O2 Delivery Room Air Capillary Refill : Less Than 3 Seconds Height, Weight, BMI Height: 5'5.00" Weight: 194lbs. 0.0oz. [id number]; 30.00 BMI Method: General Appearance: WD/WN, no apparent distress Feet: bilateral foot swelling (1 cm full-thickness laceration through toe pad crease of his left small toe) Neurologic/Psychiatric: alert, normal mood/affect Procedures/Interventions Other Wound Location Left small toe pad crease Wound Explored: clean Irrigated w/ Saline (ccs): 10 Betadine Prep?: No Anesthesia: 1% Lidocaine Volume Anesthetic (ccs): 1 Wound Debrided: minimal Suture: Ethlion Suture Size: 4-0 Number of Sutures: 5 Layer Closure?: 1 Number Deep Layer Sutures: 1 Sterile Dressing Applied?: Yes Progress/Results/Core Measures Results/Orders My Orders Orders - MONIQUE AGUIRRE DO Lidocaine 1% Inj 20 Ml (Xylocaine 1% Inj (05/20/21 15:30) Vital Signs/I&O 05/20/21 15:32 Temp 36.5 Pulse 73 Resp 16 B/P (MAP) 120/68 (85) Pulse Ox 98 O2 Delivery Room Air Blood Pressure Mean: 85 Departure Communication (Admissions) Wound closed cleansed and bandaged. Patient placed in a hard soled shoe. Sutures to removed in 10 days. Typical wound care instructions provided. Patient verbalizes understanding agreement discharge instructions prior to departure. Impression Primary Impression: Laceration of fifth toe, left Disposition: 01 HOME, SELF-CARE Condition: Stable Departure-Patient Inst. Decision time for Depature: 16:03 Referrals: MEENA BREWER (PCP) Primary Care Physician NO,LOCAL PHYSICIAN (Family) Primary Care Physician Add. Discharge Instructions: Please keep wound clean, covered and dry. Take antibiotics as directed. Follow-up with local provider in 10 days for suture removal or sooner if signs of infection All discharge instructions reviewed with patient and/or family. Voiced understanding. Scripts Cephalexin (Cephalexin) 500 Mg Tablet 500 MG PO TID, #21 TAB Prov: MONIQUE AGUIRRE DO 05/20/21 MONIQUE AGUIRRE DO May 20, 2021 15:38
[2021-05-20] MEDS ORDERED: CEPH500T PO (16:04)
== END 2021-05-20 16:07 | disposition home or self-care (01) ==
LOC: EDUNIT# 15:13 → ER FS 15:15
DX: S91.115A Laceration without foreign body of left lesser toe(s) without damage to nail, initial encounter (principal); J45.909 Unspecified asthma, uncomplicated; W26.8XXA Contact with other sharp object(s), not elsewhere classified, initial encounter
CPT/HCPCS: 12041